=== PATIENT | male | born 1970 | race Caucasian/White ===

== ENCOUNTER 2018-12-20 12:37 | Emergency (ER) | payer BC ==
[2018-12-20 14:09] VITALS: BP 130/87
--- NOTE | 2018-12-20 14:51 | UC ---
Dizzy HPI HPI Summary: The patient is a 49-year-old male with the onset yesterday of severe vertigo, nausea, vomiting 3. His symptoms worsened with laying down or with changing position from supine to standing. Today he is not completely better. He has some vertigo with change in position. He has not had any nausea or vomiting today. He denies any headache. He denies any ringing or roaring in his ears. About a week ago he did have a mild URI. He denies any chest pain, shortness of breath, or palpitations. - History Of Current Complaint Chief Complaint: UCDizziness Stated Complaint: DIZZINESS Time Seen by Provider: 12/20/18 14:39 Hx Obtained From: Patient Onset/Duration: Gradual Onset, Lasting Hours Timing: Constant Severity Initially: Severe Severity Currently: Mild Pain Intensity: 0 Pain Scale Used: 0-10 Numeric Character: Room Spinning Aggravating Factor(s): Position Change, Change In Head Position Alleviating Factor(s): Rest Associated Signs And Symptoms: Positive: Nausea - yesterday, Vomiting - yesterday, Unsteady Gait - yesterday. Negative: Diaphoresis, Tinnitus, Chest Pain, SOB, Palpitations, Visual Changes, Decreased Oral Intake, Change In Medication, Change In Diet, OTC Medications - Allergies/Home Medications Allergies/Adverse Reactions: Allergies Allergy/AdvReac Type Severity Reaction Status Date / Time No Known Allergies Allergy Verified 12/20/18 14:06 PMH/Surg Hx/FS Hx/Imm Hx Previously Healthy: Yes - Surgical History Surgical History: Yes Surgery Procedure, Year, and Place: R wrist - Family History Known Family History: Positive: Hypertension - Social History Alcohol Use: None Substance Use Type: None Smoking Status (MU): Never Smoked Tobacco Review of Systems All Other Systems Reviewed And Are Negative: Yes Constitutional: Positive: Negative Skin: Positive: Negative Eyes: Positive: Negative ENT: Positive: Negative Respiratory: Positive: Negative Cardiovascular: Positive: Negative Gastrointestinal: Positive: Negative Genitourinary: Positive: Negative Motor: Positive: Negative Neurovascular: Positive: Negative Musculoskeletal: Positive: Negative Neurological: Positive: Negative Psychological: Positive: Negative Physical Exam Triage Information Reviewed: Yes Appearance: Well-Appearing, No Pain Distress, Well-Nourished Vital Signs: Initial Vital Signs Temp 97.9 F 12/20/18 14:07 Pulse 55 12/20/18 14:07 Resp 16 03/23/19 14:07 BP 130/87 12/20/18 14:07 Pulse Ox 98 12/20/18 14:07 Vital Signs Reviewed: Yes Eyes: Positive: Conjunctiva Clear, Other: - mild lat gaze nystagmus, eomi,perrl ENT: Positive: Hearing grossly normal, Pharynx normal, TMs normal, Uvula midline. Negative: Nasal congestion, Nasal drainage, Tonsillar swelling, Tonsillar exudate, Trismus, Muffled voice, Hoarse voice, Dental tenderness, Sinus tenderness Neck: Positive: Supple, Nontender, No Lymphadenopathy Respiratory: Positive: Lungs clear, Normal breath sounds, No respiratory distress, No accessory muscle use Cardiovascular: Positive: RRR, No Murmur Musculoskeletal: Positive: ROM Intact, No Edema Neurological: Positive: Alert Psychological Exam: Normal Skin Exam: Normal Dizzy Course/Dx - Differential Dx/Diagnosis Provider Diagnosis: BPPV (benign paroxysmal positional vertigo) Discharge - Sign-Out/Discharge Documenting (check all that apply): Patient Departure All imaging exams completed and their final reports reviewed: No Studies - Discharge Plan Condition: Stable Disposition: HOME Prescriptions: Meclizine HCl [Motion Sickness Relief] 25 mg PO TID PRN #15 tablet PRN Reason: Vertigo Patient Education Materials: Benign Paroxysmal Positional Vertigo (ED) Referrals: No Primary Care Phys,NOPCP [Primary Care Provider] - Additional Instructions: change positions slowly I suggest you not drive until completely better See your MD in 2-3 days Recheck in ER for headache/loud ringing or roaring in your eyes or if symptoms dramatically worsen - Billing Disposition and Condition Condition: STABLE Disposition: Home
== END 2018-12-20 15:01 | disposition home or self-care (01) ==
LOC: UCCORT 12:37
DX: H81.10 Benign paroxysmal vertigo, unspecified ear (principal)
CPT/HCPCS: 99202; G0463